=== PATIENT | male | born 1955 | race Caucasian/White ===

== ENCOUNTER → 2020-12-08 | Outpatient (CLI) | payer OTHER ==
[2020-12-09 04:38] LABS: African American GFR (CKD) 66.8 (60.0-200.0); Albumin 4.3 g/dL (3.80-4.90); Albumin/Globulin Ratio 1.95 (1.60-3.17); Anion Gap 11.4 mmol/L (4.00-12.00); BUN/Creat Ratio 13.08 Ratio (12.00-20.00); Calcium 9.5 mg/dL (8.7-10.3); Carbon Dioxide 26.6 mmol/L (21.6-31.8); Chol/HDL Ratio 3.53; Globulin 2.2 g/dL (1.6-3.3); LDL Cholesterol,Calculated 55.2 mg/dL (0.0-131.0); Non-African American GFR(CKD) 57.7 (60.0-200.0); Potassium 3.7 mmol/L (3.5-5.5); Total Bilirubin 0.4 mg/dL (0.3-1.2); Total Protein 6.5 g/dL (6.2-8.2); VLDL Calculation 40.8 mg/dL (5.00-40.00)
== END | disposition home or self-care (01) ==
LOC: LABWHC1 15:57
PROVIDERS: ATTEND Internal Medicine Interventional Cardiology
DX: E78.2 Mixed hyperlipidemia (principal)
CPT/HCPCS: 36415; 80053; 80061

== ENCOUNTER 2020-12-10 06:06 | Day surgery (SDC) | payer OTHER ==
[2020-12-08 10:38] VITALS: BMI 37.1
[~2020-12-10 06:06] MED LIST: ALPRAZolam 0.25 MG TAB PO PRN; ALPRAZolam 0.5 MG TAB PO PRN; ASPIRIN 325 MG TAB PO STA; HEPARIN SODIUM,PORCINE 10,000 UNIT in SODIUM CHLORIDE 0.9% 1,000 ML IRRIGATION PRN; HEPARIN SODIUM,PORCINE 2,500 UNIT in SODIUM CHLORIDE 0.9% 250 ML IRRIGATION PRN; NITROGLYCERIN SL TABS 0.4 MG TAB SUBLINGUAL PRN; SODIUM CHLORIDE 0.9% 1,000 ML in EMPTY BAG 1 BAG IV ONE
[2020-12-10 06:30] LABS: Basophils # (A) 0.1 k/uL (0-0.2); Basophils % (A) 1 %; Eosinophils # (A) 0.4 k/uL (0-0.7); Eosinophils % (A) 6 %; HGB 15.7 gm/dL (13.0-17.5); Lymphocytes # (A) 2.1 k/uL (1.0-4.8); Lymphocytes % (A) 31 %; MCH 31.3 pg (25.0-35.0); MCHC 34.8 g/dL (31.0-37.0); MCV 89.9 fL (80.0-100.0); Monocytes # (A) 0.6 k/uL (0-1.0); Monocytes % (A) 9 %; Neutrophils # (A) 3.6 k/uL (1.3-7.7); Neutrophils % (A) 53 %; Platelet Count 150 k/uL (150-450); RBC 5.01 m/uL (4.30-5.90); WBC 6.8 k/uL (3.8-10.6)
[2020-12-10 06:35] VITALS: RESP 18
[2020-12-10] MEDS ORDERED: VERAPAMIL 2.5 MG/ML 2 ML AMP ONE (07:14)
[2020-12-10] MEDS ORDERED: LIDOCAINE 1% INJ 10MG/ML (20 ML MDV) ONE (07:14)
[2020-12-10] MEDS ORDERED: fentaNYL (PF) 50 MCG/ML 2 ML AMP ONE (07:29)
[2020-12-10] MEDS ORDERED: HEPARIN SODIUM 1,000 UN/ML (10ML VL) ONE (07:29)
[2020-12-10] MEDS ORDERED: fentaNYL (PF) 50 MCG/ML 2 ML AMP IVP ONE (07:39)
[2020-12-10] MEDS ORDERED: LIDOCAINE 1% INJ 10MG/ML (20 ML MDV) SQ ONE (07:41)
[2020-12-10] MEDS ORDERED: IOPAMIDOL-370 125ML BTL INJ ONE (07:58)
[2020-12-10] MEDS ORDERED: RX INFO: IV CONTRAST WAS GIVEN 1 EACH MISC MISCELLANE PRN (08:17)
[2020-12-10] MEDS ORDERED: SODIUM CHLORIDE 0.9% 1,000 ML IV SCH (08:30)
[2020-12-10 08:42] VITALS: TEMP 97.3
--- NOTE | 2020-12-10 08:48 | CC ---
CARDIAC CATHETERIZATION REPORT Mr. Alexandra is a 65-year-old male with known history of coronary artery disease, status post coronary artery bypass grafting history, history of percutaneous revascularization of his graft in 2012 who recently underwent a myocardial perfusion imaging that revealed evidence of impaired left ventricular systolic function as well as a fixed defect with some ischemia. In view of that, recommendation was made regarding cardiac catheterization. The procedure as well as the risks and the complications were discussed with the patient who is in full understanding and agreement. PROCEDURE: Patient was brought to the boat laborer in a fasting semi-sedated state after receiving fentanyl and Benadryl achieving moderate conscious state. Using Xylocaine anesthesia and Seldinger technique, a 6-Belgian sheath was introduced in the right femoral artery. Selective right and left coronary angiography performed with 6-Belgian 4 bend right Cuauhtemoc catheter. Multiple views of the coronary artery including hemiaxial views were obtained. Subsequently the right Cuauhtemoc catheter was used to cannulate the saphenous vein graft to the artery, the obtuse marginal branch and FRANCIS to LAD. Images of the grafts were obtained. Following that 6-Belgian tight pigtail catheter was introduced in the left ventricle and a 30-degree MEEKS view of the left ventricle was obtained. Following that, catheter and sheath were removed. Hemostasis was obtained with deployment of an Angio-Seal. There was no immediate complication. Patient was returned to his room in stable condition. FINDINGS: LEFT MAIN: This is a short size vessel, bifurcating into left circumflex, left anterior descending artery. Left main coronary artery has diffuse intimal disease of about 40% to 50%. LEFT ANTERIOR DESCENDING ARTERY: This vessel is totally occluded proximally with no significant antegrade flow. LEFT CIRCUMFLEX: This is a nondominant vessel that is totally occluded in mid segment with no significant antegrade flow. COLLATERALS: There is faint collaterals going to the right coronary artery territory. RIGHT CORONARY ARTERY: The right coronary artery is totally occluded proximally with no antegrade flow. SAPHENOUS VEIN GRAFT TO THE RIGHT CORONARY ARTERY: This graft is totally occluded proximally. SAPHENOUS VEIN GRAFT TO THE OBTUSE MARGINAL BRANCH: This graft is totally occluded proximally. FRANCIS to LAD: The distal anastomotic site is patent. The flow into the LAD is brisk. There is no evidence of obstructive disease. LEFT VENTRICULOGRAM: Left ventriculogram was performed in 30-degree MEEKS view and revealed inferior wall akinesis with mild lateral wall hypokinesis. The estimated ejection fraction 30% to 35%. There was no significant mitral regurgitation. HEMODYNAMICS: There was no gradient across the aortic valve. The left ventricular end-diastolic pressure was 16-20 mmHg. CONCLUSION: 1. Severe triple-vessel coronary artery disease. 2. Occluded saphenous vein graft to the obtuse marginal branch and the right coronary artery. 3. Patent FRANCIS to LAD. 4. Severely impaired left ventricular systolic function. RECOMMENDATION: In view of finding anatomy, I would recommend maximizing the medical therapy and evaluate the patient for possible ICD implantation. Those findings and recommendation were discussed with the patient and his family and are in full understanding and agreement. Duration of sedation is 30 minutes. MMESTELLEL / IJN: [id number] /
--- NOTE | 2020-12-10 08:51 | LTR ---
December 10, 2020 Re: Jay Jaydelia Alexandra Dear Dr. York: I had the opportunity to perform cardiac catheterization on Mr. Alexandra at [facility] on the 10 of December and a full copy of the procedure note will be forwarded to you. In brief, he was found to have chronically occluded [place] vessels with patent FRANCIS to LAD but occluded saphenous vein graft to the right coronary artery and to the obtuse marginal branch with severely impaired left ventricular systolic function. Based on those findings, I will maximize his medical therapy and evaluate him for possible need to undergo ICD implantation. Thank you again for allowing me the opportunity to participate in his care. Please feel free to call for any questions. Sincerely yours, MD DAGMAR James / STACY: [id number] /
[2020-12-10] MEDS ORDERED: TESTOSTERONE 50 MG TOPICAL SCH (09:00)
[2020-12-10] MEDS ORDERED: carvediloL 12.5 MG TAB PO SCH (09:00)
[2020-12-10] MEDS ORDERED: NON FORMULARY DRUG (Cinnamon Bark [Cinnamon] 500 MG Capsule) PO SCH (09:00)
[2020-12-10 11:18] VITALS: BP 104/61
[2020-12-10 12:48] VITALS: PULSE 58
[2020-12-11] MEDS ORDERED: hydroCHLOROthiazide 12.5 MG CAP PO SCH (09:00)
[2020-12-11] MEDS ORDERED: CHOLECALCIFEROL 10 MCG (400 IU) TABLET PO SCH (09:00)
[2020-12-11] MEDS ORDERED: LOSARTAN 25 MG TAB PO SCH (09:00)
[2020-12-11] MEDS ORDERED: ATORVASTATIN 80 MG TAB PO SCH (09:00)
[2020-12-11] MEDS ORDERED: ASPIRIN 81 MG PO SCH (09:00)
== END 2020-12-10 12:59 | disposition home or self-care (01) ==
LOC: EDSEX → CATHCVL 06:06 → MERGE 07:30 → EDBD 07:30 → CATHCVL 12:59
PROVIDERS: ATTEND Internal Medicine Interventional Cardiology
DX: I25.10 Atherosclerotic heart disease of native coronary artery without angina pectoris (principal); I25.810 Atherosclerosis of coronary artery bypass graft(s) without angina pectoris; I25.82 Chronic total occlusion of coronary artery; I10 Essential (primary) hypertension; I25.5 Ischemic cardiomyopathy; Z87.891 Personal history of nicotine dependence; E78.00 Pure hypercholesterolemia, unspecified; E78.2 Mixed hyperlipidemia; Z95.5 Presence of coronary angioplasty implant and graft; I25.2 Old myocardial infarction; Z82.49 Family history of ischemic heart disease and other diseases of the circulatory system; Z79.82 Long term (current) use of aspirin; Z79.899 Other long term (current) drug therapy
CPT/HCPCS: 93459; 85025; C1769 ×2; C1760; C1894; J2001; J3010; Q9967